=== PATIENT | male | born 1990 | race African-American/Black ===

== ENCOUNTER 2019-10-31 19:02 | Emergency (ER) | payer MEDICARE, OTHER ==
[~2019-10-31] VITALS: Ht 172.7 cm; Wt 108.9 kg
--- NOTE | 2019-10-31 19:34 | NUR ---
PT RETURNED TO RM 1
--- NOTE | 2019-10-31 19:44 | Diagnostic Imaging Report ---
EXAMINATION: CXR 1 [facility] INDICATION: Pain. Cough. COMPARISON: None FINDINGS: TUBES and LINES: None. LUNGS: Lungs are well inflated. Minimal perihilar, peribronchial thickening and perihilar streaky densities may reflect viral infection versus reactive airway disease. There is no evidence of pneumonia or pulmonary edema. PLEURA: No pleural effusion or pneumothorax. HEART AND MEDIASTINUM: The cardiomediastinal silhouette is unremarkable. BONES AND SOFT TISSUES: No acute osseous lesion. Soft tissues are unremarkable. UPPER ABDOMEN: No free air under the diaphragm. IMPRESSION: Findings may reflect minimal bronchitis/reactive airway disease. No consolidation. Signed by: Dr. Verónica Duenas M.D. on 10/31/2019 7:41 PM
--- NOTE | 2019-10-31 20:24 | Emergency Department Note ---
History of Present Illnes History of Present Illness Chief Complaint: Chest Pain History of Present Illness This is a 29 year old male with chief complaint of right sided chest pain. Patient has been having cough for couple days. Pain is worse with cough. No fever Historian: Patient Arrival Mode: Car Onset (how long ago): day(s) (2) Location: R chest Quality: SHARP Radiation: non-radiation, back, neck, extremity, abdomen, periumbilical, flank, proximal, distal, other Severity: moderate Onset quality: sudden Duration (how long): day(s) (1) Timing of current episode: constant Progression: waxing and waning Chronicity: new Context: recent illness, recent surgery, recent immobilization, recent travel, trauma/injury, new medications, hx of DVT/PE, non-compliance w/ medications, other Relieving factors: none Exacerbating factors: none Associated symptoms: denies other symptoms Past Medical/Family History Physician Review I have reviewed the patient's past medical and family history. Any updates have been documented here. Past Medical History Recent Fever: No Clinical Suspicion of Infectio: No New/Unexplained Change in Ment: No Past Medical History: Anxiety Other Medical History: PRE DM Other Surgery: R-LOWER LEG PLATE AND SCREWS Social History Smoking Cessation: Current every day smoker Alcohol Use: Occasional Any Illegal Drug Use: Yes (OCC. [facility] [place]) TB Exposure/Symptoms: No Physically hurt or threatened: No Other Last Tetanus: UNK Any Pre-Existing Lines (PICC,: No Is patient up to date on immun: No Last Flu: NONE Last Pneumovax: NA Review of Systems Review of Systems Constitutional: no symptoms EENTM: no symptoms Cardiovascular: as per HPI, chest pain Respiratory: as per HPI, cough Gastrointestinal: no symptoms Genitourinary: no symptoms Musculoskeletal: no symptoms Neurological: no symptoms Psychological: no symptoms Endocrine: no symptoms Hematological/Lymphatic: no symptoms Review of other systems All other systems reviewed and negative. Physical Exam Related Data Triage Vital Signs Vital Signs Date Time Temp Pulse Resp B/P (MAP) Pulse Ox O2 Delivery O2 Flow Rate FiO2 10/31/19 19:11 97.0 88 18 156/74 98 Vital signs reviewed: Yes Physical Exam CONSTITUTIONAL Constitutional: well-developed, well-nourished HENT HENT: normocephalic, atraumatic, oropharynx clear/moist, nose normal HENT L/R: left ext ear normal, right ext ear normal EYES Eyes: PERRL, conjunctivae normal NECK Neck: ROM normal PULMONARY Pulmonary: effort normal, breath sounds normal CARDIOVASCULAR Cardiovascular: regular rhythm, heart sounds normal, capillary refill normal, normal rate GASTROINTESTINAL Abdominal: soft, nontender, bowel sounds normal GENITOURINARY Genitourinary: exam deferred SKIN Skin: warm, dry MUSCULOSKELETAL Musculoskeletal: ROM normal NEUROLOGICAL Neurological: alert, oriented x 3, no gross motor or sensory deficits PSYCHOLOGICAL Psychological: mood/affect normal, judgement normal Results Laboratory Lab results reviewed: Yes Imaging Imaging results reviewed: Yes Procedures 12 Lead ECG Interpretation Outsole Tacker: Interpreted by ED physician Date: Oct 31, 2019 Time: 19:10 Rhythm: sinus rhythm Rate: normal BPM: 87 T waves normal: Yes Clinical Impression: normal ECG Critical Care Time Subsequent provider I assumed direction of critical care for this patient from another provider of my specialty. Assessment & Plan Reassessment Reassessment time: 20:23 Reassessment IMPROVED Assessment & Plan Final Impression: (1) CHEST PAIN, UNSPECIFIED (2) ACUTE BRONCHITIS, UNSPECIFIED (3) PLEURISY Assessment & Plan CIPRO NAROSYN Depart Disposition: HOME, SELF-CARE Last Vital Signs Date Time Temp Pulse Resp B/P (MAP) Pulse Ox O2 Delivery O2 Flow Rate FiO2 10/31/19 19:11 97.0 88 18 156/74 98 JASSON CHING MD Oct 31, 2019 20:24
[2019-10-31 20:26] VITALS: BP 144/79
== END 2019-10-31 20:25 | disposition home or self-care (01) ==
LOC: FSED 19:02
DX: R05 Cough (principal); R09.1 Pleurisy; J20.9 Acute bronchitis, unspecified; F41.9 Anxiety disorder, unspecified; F17.210 Nicotine dependence, cigarettes, uncomplicated
CPT/HCPCS: 71045; 80053; 84484; 85025; 85379; 93005; 99283

== ENCOUNTER 2020-09-26 21:42 | Emergency (ER) | payer OTHER, MEDICARE ==
[~2020-09-26] VITALS: Ht 172.7 cm; Wt 101.2 kg
[2020-09-26] MEDS ORDERED: CYCLOBENZAPRINE HCL 10 MG TAB PO ONE (23:00)
[2020-09-26] MEDS ORDERED: IBUPROFEN 400 MG TAB PO ONE (23:00)
[2020-09-26] MEDS ORDERED: CYCLOBENZAPRINE HCL 10 MG TAB ONE (23:11)
[2020-09-26] MEDS ORDERED: IBUPROFEN 400 MG TAB ONE (23:11)
[2020-09-27] MEDS ORDERED: IBUPROFEN800 MG PO (00:45)
[2020-09-27] MEDS ORDERED: CYCLOBENZAPRINE10 MG PO (00:46)
== END 2020-09-27 01:03 | disposition home or self-care (01) ==
LOC: FSED 22:05
DX: S13.4XXA Sprain of ligaments of cervical spine, initial encounter (principal); S60.222A Contusion of left hand, initial encounter; M54.9 Dorsalgia, unspecified; R51.9 Headache, unspecified; V43.62XA Car passenger injured in collision with other type car in traffic accident, initial encounter; Y92.488 Other paved roadways as the place of occurrence of the external cause; F41.9 Anxiety disorder, unspecified; F17.210 Nicotine dependence, cigarettes, uncomplicated
CPT/HCPCS: 72072; 72100; 72125; 99283

== ENCOUNTER 2021-05-29 09:36 | Emergency (ER) | payer MEDICARE, OTHER ==
[~2021-05-29] VITALS: Ht 172.7 cm; Wt 99.8 kg
[~2021-05-29 09:36] MED LIST: CYCLOBENZAPRINE10 MG PO; IBUPROFEN800 MG PO
[2021-05-29] MEDS ORDERED: IBUPROFEN 600 MG TAB PO STA (09:55)
[2021-05-29] MEDS ORDERED: IBUPROFEN 600 MG TAB ONE (10:17)
[2021-05-29] MEDS ORDERED: IBUPROFEN600 MG PO (10:17)
== END 2021-05-29 10:15 | disposition home or self-care (01) ==
LOC: FSED 09:41
DX: J06.9 Acute upper respiratory infection, unspecified (principal)
CPT/HCPCS: 83518; 87400; 99282

== ENCOUNTER 2021-10-05 09:17 | Emergency (ER) | payer MEDICARE, OTHER ==
[~2021-10-05] VITALS: Ht 172.7 cm; Wt 111.6 kg
[~2021-10-05 09:17] MED LIST changes: +IBUPROFEN600 MG PO
[2021-10-05] MEDS ORDERED: HYDROCODONE/APAP 5MG-325MG TAB PO ONE (09:45)
[2021-10-05] MEDS ORDERED: HYDROCODONE/APAP 5MG-325MG TAB ONE (09:46)
[2021-10-05] MEDS ORDERED: NAPROSYN500 MG PO ×2 (10:53→11:02)
[2021-10-05] MEDS ORDERED: ULTRAM 50MG50 MG PO ×2 (10:54→11:02)
== END 2021-10-05 11:16 | disposition home or self-care (01) ==
LOC: FSED 09:37
DX: S93.491A Sprain of other ligament of right ankle, initial encounter (principal); X50.1XXA Overexertion from prolonged static or awkward postures, initial encounter; Y93.01 Activity, walking, marching and hiking; Y92.89 Other specified places as the place of occurrence of the external cause
CPT/HCPCS: 99283